=== PATIENT | male | born 1980 | race Caucasian/White ===

== ENCOUNTER 2018-08-29 09:10 | Emergency (ER) | payer OTHER ==
--- NOTE | 2018-08-29 09:33 | ERPHSYRPT ---
- History of Present Illness Time Seen by Provider: 08/29/18 09:27 Source: patient, family Exam Limitations: no limitations Patient Subjective Stated Complaint: tripped going down stairs and right foot 4th toe got stuck in the rail Triage Nursing Assessment: Pt was walking down stairs at home while trying to put on a shirt and tripped and right 4th toe got caught between the railing and is now bent to the right, no other issues at this time Physician History: The patient is a 38-year-old male with his complaining that he tripped and caught his right fourth toe in the railing in the house causing his toe to be bent severely to the outside. He straightened it. He did not hear a pop or snap while he straightened it. The toe is now nearly straight. He denies any pain at this time. He denies numbness or tingling. Occurred: just prior to arrival Reason for Fall: tripped, fell from standing pos Injuries/Pain Location: lower extremity (right foot) Loss of Consciousness: no loss of consciousness Quality: aching Severity of Pain-Max: mild Severity of Pain-Current: none Modifying Factors: Improves With: nothing Associated Symptoms (Fall): denies symptoms Allergies/Adverse Reactions: Penicillins Allergy (Verified 08/29/18 09:26) Hx Tetanus, Diphtheria Vaccination/Date Given: No (7/8 years ago) - Review of Systems Constitutional: No Fever, No Chills Eyes: No Symptoms Ears, Nose, & Throat: No Symptoms Respiratory: No Cough, No Dyspnea Cardiac: No Chest Pain, No Edema, No Syncope Abdominal/Gastrointestinal: No Abdominal Pain, No Nausea, No Vomiting, No Diarrhea Genitourinary Symptoms: No Dysuria Musculoskeletal: Fall, Injury Skin: Other (abrasion), No Rash Neurological: No Dizziness, No Focal Weakness, No Sensory Changes Psychological: No Symptoms Endocrine: No Symptoms Hematologic/Lymphatic: No Symptoms Immunological/Allergic: No Symptoms All Other Systems: Reviewed and Negative - Past Medical History Pertinent Past Medical History: Yes Other Medical History: arthritis on shoulder - Past Surgical History Past Surgical History: Yes Musculoskeletal: Other Male Surgical History: Vasectomy Other Surgical History: ACL, - Social History Smoking Status: Never smoker Exposure to second hand smoke: No Drug Use: none Patient Lives Alone: No - Nursing Vital Signs Nursing Vital Signs: Initial Vital Signs Temperature 97.7 F 08/29/18 09:15 Pulse Rate 66 08/29/18 09:15 Blood Pressure 149/103 08/29/18 09:15 O2 Sat by Pulse Oximetry 98 08/29/18 09:15 Pain Scale Pain Intensity 2 - Nenzel Coma Score Best Eye Response (Rk): (4) open spontaneously Best Verbal Response (Rk): (5) oriented Best Motor Response (Rk): (6) obeys commands Rk Total: 15 - Physical Exam General Appearance: no apparent distress, alert Head Injury: no evidence of injury Eye Exam: PERRL/EOMI ENT Exam: airway nml Neck Exam: normal inspection, No tenderness Respiratory/Chest Exam: normal breath sounds, No chest tenderness, No respiratory distress Cardiovascular Exam: normal heart sounds, regular rate/rhythm Gastrointestinal Exam: soft, No tenderness, No distention, No guarding, No ecchymosis Rectal Exam: not done Back Exam: normal inspection, No vertebral tenderness Extremity Exam: other (Examination of the right foot: The fourth toe is mildly positioned laterally. There is no pain with passive movement or palpation. There is an abrasion to the distal third toe.), No pain with movement, No tenderness Neurologic Exam: alert, oriented x 3, cooperative, sensation nml, No motor deficits Skin Exam: abrasion SpO2 Interpretation: normal SpO2: 98 Oxygen Delivery: Room Air - Radiology Exams Right Foot X-ray Interpretation: Interpreted by me, Displaced Fracture (midshaft displaced fracture of proximal phalanx of right 4th toe) Ordered Tests: Active Orders 24 hr Category Date Time Status FOOT (MINIMUM 3 VIEWS) Stat Exams 08/29/18 09:47 Taken - Progress Counseled pt/family regarding: rad results - Departure Time of Disposition: 10:00 Departure Disposition: Home Clinical Impression: Toe fracture, right Condition: Stable Critical Care Time: No Referrals: ADAMARIS SARMIENTO NP [Primary Care Provider] - Additional Instructions: You have a mildly displaced fracture of the proximal phalanx of the right fourth toe. You were given Toradol 60 mg by IM in the ER. Take naproxen 500 mg every 12 hours as needed. You can also take Tylenol 1000 mg every 6-8 hours. Keep ice on the area for 15-20 minutes 3-4 times a day. Keep your foot elevated today. Follow-up with Dr. Karan Martínez. Call his office tomorrow at [phone]. Prescriptions: Naproxen 500 mg PO BID PRN #30 tablet
[2018-08-29] MEDS ORDERED: TORAdol 30 mg Injection IM ONE (09:58)
[2018-08-29] MEDS ORDERED: TORAdol 30 mg Injection ONE (10:10)
[2018-08-29 10:52] VITALS: BP 139/95; PULSE 64; O2SAT 95
--- NOTE | 2018-08-29 11:23 | XRAY ---
Indication: Pain following fall. Comparison: None 3 nonweightbearing views of the right foot demonstrates minimally angulated fracture involving the shaft of the 4th proximal phalanx with soft tissue swelling. No other bony, articular, or soft tissue abnormalities.
== END 2018-08-29 10:52 | disposition home or self-care (01) ==
LOC: ED 09:10
DX: S92.511A Displaced fracture of proximal phalanx of right lesser toe(s), initial encounter for closed fracture (principal); W18.49XA Other slipping, tripping and stumbling without falling, initial encounter; Y93.89 Activity, other specified; Y92.009 Unspecified place in unspecified non-institutional (private) residence as the place of occurrence of the external cause
CPT/HCPCS: 73630; 96372; 99284; J1885

== ENCOUNTER 2022-12-09 05:54 | Day surgery (SDC) | payer BC ==
[2022-12-09] MEDS ORDERED: Lactated Ringers 1,000 ML IV SCH (06:30)
[2022-12-09] MEDS ORDERED: Xylocaine-Mpf 2% 5 Ml Vial ONE (06:49)
[2022-12-09] MEDS ORDERED: DIPRIVAN 200 MG/20 ML IV ONE (06:49)
[2022-12-09] MEDS ORDERED: Versed 2 MG/2 ML Injection ONE (07:38)
[2022-12-09 08:50] VITALS: O2SAT 98
[2022-12-09 08:57] VITALS: BP 128/74; PULSE 78
--- NOTE | 2022-12-09 10:22 | OP ---
SURGERY DATE/TIME: 12/09/2022 0727 PREOPERATIVE DIAGNOSIS: Burning abdominal pain and 20 pound weight loss. POSTOPERATIVE DIAGNOSIS: Mild gastritis. PROCEDURE: Esophagogastroduodenoscopy with cold forceps biopsy. SURGEON: Dr. Dangelo. ANESTHESIA: Medications were given by the anesthesia department. BRIEF HISTORY: The patient is a 42-year-old white male presenting for upper endoscopy. He has had a lot of gastric burning and he reports about a 20 pound weight loss over the past two months. The patient is felt to need to have endoscopic evaluation. He was appraised of the risks of the procedure including the risk of perforation, phlebitis, untoward reaction to medication, bleeding and missed lesions. The patient verbalized his understanding and desired to have the procedure performed. DESCRIPTION OF PROCEDURE: The patient was given the medications by the anesthesia department. He had continuous pulse oximetry, ECG monitoring, intermittent blood pressure monitoring and tidal CO2 monitoring during the examination. He was placed in the left lateral decubitus position. A bite block was placed and the flexible Olympus gastroscope was used to intubate the oropharynx. A view of the larynx obtained and was normal. The scope was easily introduced in the esophagus which appeared to be normal throughout its length. The stomach was entered where normal gastric rugal folds were seen and these distended nicely with insufflation of air. The scope was passed along the greater curvature of the stomach to the antrum. The pylorus was encountered and intubated. The duodenum inspected and found to be normal. The scope is withdrawn towards the stomach again. A retroflex view was obtained of the lesser curvature, fundus and cardia regions of the stomach and these appeared to be essentially normal as well. The scope was then redirected towards the gastric antrum and biopsies obtained to rule out the presence of Helicobacter pylori-type organisms. The scope was then removed from the patient who tolerated the procedure well and was sent back to outpatient recovery in good condition.
== END 2022-12-09 08:50 | disposition home or self-care (01) ==
LOC: SDC 05:54
PROVIDERS: ATTEND Family Medicine
DX: K29.70 Gastritis, unspecified, without bleeding (principal); R10.9 Unspecified abdominal pain; R63.4 Abnormal weight loss
CPT/HCPCS: J2250; J2704